=== PATIENT | female | born 1955 | race Caucasian/White ===

== ENCOUNTER 2017-02-08 09:42 | Inpatient (IN) | payer OTHER ==
[~2017-02-08] VITALS: Ht 154.9 cm; Wt 73.3 kg
[2017-02-08 10:24] LABS: BASOPHIL 0.7 % (0-2); EOSINOPHIL 1.1 % (0-7); HCT 37.5 % (37.0-47.0); HGB 13.3 g/dl (12.5-16.0); LYMPHOCYTE 10.7 % (15-48); MCHC 35.5 g/dL (32.0-36.0); MCV 90.1 fL (78.0-100.0); NEUTROPHIL 77.5 % (41-80); PLT 337 K/uL (150-400); RBC 4.16 M/uL (4.20-5.40); RDW 13.5 % (11.5-14.0)
[2017-02-08 10:36] LABS: WBC 12.3 K/uL (4.0-10.5)
[2017-02-08 10:53] LABS: ALBUMIN 3.7 g/dL (3.4-4.8); BILIRUBIN - TOTAL 0.4 mg/dL (0.1-1.0); CREATININE 1.3 mg/dL (0.5-1.0); GLOBULIN (CALCULATION) 3.5 g/dL (2.2-4.2); POTASSIUM 3.5 mmol/L (3.5-5.1); TOTAL PROTEIN 7.2 g/dL (6.4-8.3)
[2017-02-08 14:06] LABS: LACTIC ACID 0.7 mmol/L (0.5-2.2)
[2017-02-09 05:15] LABS: BASOPHIL 0.1 % (0-2); EOSINOPHIL 0 % (0-7); HCT 34.1 % (37.0-47.0); MCH 31.8 pg (25.0-31.0); MCHC 35.2 g/dL (32.0-36.0); MCV 90.5 fL (78.0-100.0); MONOCYTE 0.9 % (0-12); MPV 9.9 fL (6.0-9.5); PLT 315 K/uL (150-400); RBC 3.77 M/uL (4.20-5.40); RDW 13.3 % (11.5-14.0)
[2017-02-09 05:18] LABS: WBC 7.8 K/uL (4.0-10.5)
[2017-02-09 05:35] LABS: CREATININE 0.9 mg/dL (0.5-1.0); MAGNESIUM 0.56 mg/dL (1.40-2.10); POTASSIUM 3.2 mmol/L (3.5-5.1)
[2017-02-10 04:58] LABS: HCT 32.4 % (37.0-47.0); HGB 11.3 g/dl (12.5-16.0); MCH 31.8 pg (25.0-31.0); MCHC 34.9 g/dL (32.0-36.0); MCV 91.3 fL (78.0-100.0); MPV 9.8 fL (6.0-9.5); RBC 3.55 M/uL (4.20-5.40); RDW 13.3 % (11.5-14.0)
[2017-02-10 04:59] LABS: WBC 16.9 K/uL (4.0-10.5)
[2017-02-10 05:24] LABS: CREATININE 0.9 mg/dL (0.5-1.0); POTASSIUM 2.9 mmol/L (3.5-5.1)
[2017-02-10] MEDS ORDERED: AUGMENTIN 875-1 EACH PO (15:18)
[2017-02-10] MEDS ORDERED: PREDNISONE 10MG10 MG PO (15:18)
[2017-02-10] MEDS ORDERED: ZITHROMAX500 MG PO (15:19)
[2017-02-10] MEDS ORDERED: VENTOLIN HFA IN18 GM INH (15:21)
[2017-02-10] MEDS ORDERED: BREO ELLIPTA 11 EACH INH (15:21)
[2017-02-10] MEDS ORDERED: SYNTHROID75 MCG PO (15:22)
[2017-02-10] MEDS ORDERED: KLOR-CON M 1010 MEQ PO (15:22)
[2017-02-10] MEDS ORDERED: VITAMIN D50000 UNIT PO (15:23)
[2017-02-10] MEDS ORDERED: ZANAFLEX4 MG PO (15:23)
[2017-02-10] MEDS ORDERED: AMLODIPINE-BEN1 EAC2 PO (15:24)
[2017-02-10] MEDS ORDERED: ATENOLOL-CHLOR1 EACH PO (15:24)
[2017-02-10] MEDS ORDERED: PRILOSEC20 MG PO (15:26)
[2017-02-10] MEDS ORDERED: IBUPROFEN800 MG PO (15:27)
[2017-02-10] MEDS ORDERED: ASPIRIN CHEWABL81 MG PO (15:27)
[2017-02-10] MEDS ORDERED: DUONEB 2.5-0.5M1 AMP NEB (15:28)
[2017-02-10] MEDS ORDERED: VALACYCLOVIR500 MG PO (15:29)
== END 2017-02-10 16:10 | disposition home or self-care (01) | DRG 872 ==
LOC: FER 09:42 → FMS 12:52 → FER 13:30 → FMS 02-10 16:10
PROVIDERS: Emergency Medicine; Internal Medicine; ADMIT Internal Medicine
DX: A41.9 Sepsis, unspecified organism (principal); N17.9 Acute kidney failure, unspecified; E87.3 Alkalosis; J44.1 Chronic obstructive pulmonary disease with (acute) exacerbation; J44.0 Chronic obstructive pulmonary disease with (acute) lower respiratory infection; J20.9 Acute bronchitis, unspecified; I10 Essential (primary) hypertension; K21.9 Gastro-esophageal reflux disease without esophagitis; E03.9 Hypothyroidism, unspecified; I25.10 Atherosclerotic heart disease of native coronary artery without angina pectoris; Z95.1 Presence of aortocoronary bypass graft; F17.210 Nicotine dependence, cigarettes, uncomplicated
CPT/HCPCS: 36415; 36600; 71020; 71275; 80048; 80053; 82803; 83605; 83735; 84145; 84443; 84484; 85025; 85379; 87040; 87070; 87205; 93005; 94010; 94640; 94667; 94668; J0456; J2405; J2930; J3475; Q9967